=== PATIENT | female | born 1980 | race Two or more races ===

== ENCOUNTER 2016-10-10 12:31 | Emergency (ER) | payer MEDICAID | END 2016-10-10 16:35 | disposition home or self-care (01) | LOC: D.ER 12:31 | DX: T14.8 Other injury of unspecified body region (principal); V89.2XXA Person injured in unspecified motor-vehicle accident, traffic, initial encounter; Y93.89 Activity, other specified; Y92.89 Other specified places as the place of occurrence of the external cause; K21.9 Gastro-esophageal reflux disease without esophagitis; F17.200 Nicotine dependence, unspecified, uncomplicated ==

== ENCOUNTER 2018-02-27 14:52 | Emergency (ER) | payer MEDICAID ==
[~2018-02-27] VITALS: Ht 165.1 cm; Wt 95.5 kg
[2018-02-27 15:29] VITALS: Ht 165.1 cm; Wt 95.5 kg
[2018-02-27 16:01] LABS: BASOPHILS 0.2 % (0-2); EOSINOPHILS 1.9 % (0-7); HEMATOCRIT 43.8 % (36.0-48.0); HEMOGLOBIN 15.1 g/dL (12-16); IMMATURE GRANULOCYTES 0.1 % (0-5); LYMPHOCYTES 14.7 % (15-50); MCH 32.4 pg (26.0-34.0); MCHC 34.5 g/dL (31.0-37.0); MEAN PLATELET VOLUME 9.7 fL (7.4-10.4); MONOCYTES 8.9 % (2-11); NEUTROPHILS 74.2 % (40-80); PLATELET COUNT 257 10x3/uL (130-400); RBC 4.66 10x6/uL (4.00-5.40); RDW 13.2 % (11.5-14.5); WBC 8.7 10x3/uL (4.8-10.8)
[2018-02-27 16:18] LABS: ALBUMIN 3.5 g/dL (3.4-5.0); ANION GAP 12.6 mmol/L (8-16); BILIRUBIN - TOTAL 0.39 mg/dL (0.2-1.3); CALCIUM 8.1 mg/dL (8.5-10.1); CARBON DIOXIDE 25.8 mmol/L (21.0-32.0); CREATININE - SERUM 0.9 mg/dL (0.6-1.3); POTASSIUM - SERUM 3.4 mmol/L (3.5-5.1); PROTEIN - SERUM 6.4 g/dL (6.4-8.2)
[2018-02-27 16:47] LABS: APPEARANCE HAZY (CLEAR); BILIRUBIN NEGATIVE (NEGATIVE); COLOR YELLOW (YELLOW); GLUCOSE NEGATIVE (NEGATIVE); KETONE NEGATIVE (NEGATIVE); NITRITE NEGATIVE (NEGATIVE); PROTEIN TRACE mg/dL (NEGATIVE); UROBILINOGEN NORMAL (NORMAL)
[2018-02-27 16:54] LABS: BACTERIA MODERATE /hpf (NONE SEEN); EPITHELIAL CELLS 0-5 /hpf (0-5); RED CELLS - URINE 0-5 /hpf (0-5)
[2018-02-27] MEDS ORDERED: CIPRO500 MG PO (17:59)
[2018-02-27 18:30] VITALS: BP 124/80
== END 2018-02-27 18:31 | disposition home or self-care (01) ==
LOC: D.ER 14:52
PROVIDERS: Family Medicine
DX: N39.0 Urinary tract infection, site not specified (principal); R30.0 Dysuria

== ENCOUNTER 2018-04-23 22:48 | Emergency (ER) | payer MEDICAID ==
[~2018-04-23] VITALS: Ht 165.1 cm; Wt 95.0 kg
[~2018-04-23 22:48] MED LIST: CIPRO500 MG PO
[2018-04-23 23:00] VITALS: Ht 165.1 cm; Wt 95.0 kg
[2018-04-23 23:21] LABS: HCG URINE NEGATIVE (NEGATIVE)
[2018-04-23 23:31] LABS: APPEARANCE HAZY (CLEAR); BACTERIA MODERATE /hpf (NONE SEEN); BILIRUBIN NEGATIVE (NEGATIVE); COLOR YELLOW (YELLOW); GLUCOSE NEGATIVE (NEGATIVE); KETONE NEGATIVE (NEGATIVE); NITRITE NEGATIVE (NEGATIVE); PROTEIN TRACE mg/dL (NEGATIVE); UROBILINOGEN NORMAL (NORMAL)
[2018-04-23 23:32] LABS: MUCUS >1+ /lpf (NONE SEEN)
[2018-04-23 23:34] LABS: BASOPHILS 0.6 % (0-2); HEMATOCRIT 40.7 % (36.0-48.0); HEMOGLOBIN 13.9 g/dL (12-16); IMMATURE GRANULOCYTES 0.1 % (0-5); LYMPHOCYTES 29.1 % (15-50); MCH 32.3 pg (26.0-34.0); MCHC 34.2 g/dL (31.0-37.0); MCV 94.4 fL (80.0-100.0); MEAN PLATELET VOLUME 9.8 fL (7.4-10.4); MONOCYTES 5.6 % (2-11); NEUTROPHILS 60.6 % (40-80); PLATELET COUNT 291 10x3/uL (130-400); RBC 4.31 10x6/uL (4.00-5.40); RDW 13.2 % (11.5-14.5); WBC 10.8 10x3/uL (4.8-10.8)
[2018-04-23 23:47] LABS: ALBUMIN 3.4 g/dL (3.4-5.0); ANION GAP 12.1 mmol/L (8-16); BILIRUBIN - TOTAL 0.22 mg/dL (0.2-1.3); CALCIUM 8.2 mg/dL (8.5-10.1); CARBON DIOXIDE 26.3 mmol/L (21.0-32.0); CREATININE - SERUM 0.9 mg/dL (0.6-1.3); POTASSIUM - SERUM 3.4 mmol/L (3.5-5.1); PROTEIN - SERUM 6.8 g/dL (6.4-8.2)
[2018-04-24 00:06] VITALS: BP 122/74
== END 2018-04-24 00:07 | disposition home or self-care (01) ==
LOC: D.ER 22:48
PROVIDERS: Family Medicine
DX: N93.9 Abnormal uterine and vaginal bleeding, unspecified (principal); R10.2 Pelvic and perineal pain

== ENCOUNTER 2018-11-15 21:14 | Emergency (ER) | payer MEDICAID ==
[~2018-11-15] VITALS: Ht 165.1 cm; Wt 100.0 kg
[2018-11-15 21:33] VITALS: Ht 165.1 cm; Wt 100.0 kg
[2018-11-15 22:43] LABS: BASOPHILS 0.6 % (0-2); EOSINOPHILS 4.9 % (0-7); HEMATOCRIT 41.4 % (36.0-48.0); HEMOGLOBIN 14.4 g/dL (12-16); IMMATURE GRANULOCYTES 0.2 % (0-5); LYMPHOCYTES 29.5 % (15-50); MCH 31.9 pg (26.0-34.0); MCHC 34.8 g/dL (31.0-37.0); MCV 91.6 fL (80.0-100.0); MEAN PLATELET VOLUME 9.4 fL (7.4-10.4); MONOCYTES 8.3 % (2-11); NEUTROPHILS 56.5 % (40-80); PLATELET COUNT 285 10x3/uL (130-400); RBC 4.52 10x6/uL (4.00-5.40); RDW 12.8 % (11.5-14.5); WBC 9.1 10x3/uL (4.8-10.8)
[2018-11-15 22:52] LABS: APPEARANCE CLEAR (CLEAR); BILIRUBIN NEGATIVE (NEGATIVE); COLOR YELLOW (YELLOW); GLUCOSE NEGATIVE (NEGATIVE); KETONE NEGATIVE (NEGATIVE); NITRITE NEGATIVE (NEGATIVE); PROTEIN NEGATIVE (NEGATIVE); RED CELLS - URINE OCC /hpf (0-5); SPECIFIC GRAVITY 1.015 (1.005-1.020); UROBILINOGEN NORMAL (NORMAL); WHITE CELLS - URINE 0-5 /hpf (0-5)
[2018-11-15 22:53] LABS: BACTERIA MODERATE /hpf (NONE SEEN); EPITHELIAL CELLS 0-5 /hpf (0-5)
[2018-11-15 22:53] LABS: HCG SERUM POSITIVE (NEGATIVE)
[2018-11-15 22:54] LABS: ALBUMIN 3.6 g/dL (3.4-5.0); ALKALINE PHOSPHATASE 58 U/L (46-116); ALT (SGPT) 23 U/L (10-68); BILIRUBIN - TOTAL 0.27 mg/dL (0.2-1.3); CALC OSMOLALITY 276 mosm/kg (275-300); CALCIUM 8.4 mg/dL (8.5-10.1); CHLORIDE - SERUM 102 mmol/L (98-107); CREATININE - SERUM 0.7 mg/dL (0.6-1.3); GLUCOSE 102 mg/dL (74-106); POTASSIUM - SERUM 3.5 mmol/L (3.5-5.1); PROTEIN - SERUM 6.9 g/dL (6.4-8.2); SODIUM 139 mmol/L (136-145); UREA NITROGEN 11 mg/dL (7-18); eGFR NON AFRICAN AMERICAN > 90 mL/min (90-120)
[2018-11-16 00:10] VITALS: BP 101/56
== END 2018-11-16 00:08 | disposition home or self-care (01) ==
LOC: D.ER 21:14
PROVIDERS: Family Medicine
DX: O20.9 Hemorrhage in early pregnancy, unspecified (principal); Z3A.10 10 weeks gestation of pregnancy

== ENCOUNTER 2020-02-08 14:12 | Outpatient (CLI) | payer MEDICAID ==
[2018-11-15 21:33] VITALS: BMI 36.6
[2020-02-08 15:32] LABS: BILIRUBIN NEGATIVE (NEGATIVE); KETONE NEGATIVE (NEGATIVE); NITRITE NEGATIVE (NEGATIVE); UROBILINOGEN NORMAL (NORMAL)
== END 2020-02-08 16:30 | disposition home or self-care (01) ==
LOC: D.LDO 14:12
PROVIDERS: ATTEND Student in an Organized Health Care Education/Training Program
DX: O26.899 Other specified pregnancy related conditions, unspecified trimester (principal); Z3A.00 Weeks of gestation of pregnancy not specified; M54.5 Low back pain; R30.0 Dysuria

== ENCOUNTER 2020-03-08 00:37 | Inpatient (IN) | payer MEDICAID ==
[2020-03-06 16:24] LABS: HEMATOCRIT 36.8 % (36.0-48.0); HEMOGLOBIN 12.3 g/dL (12-16); MCH 30.6 pg (26.0-34.0); MCHC 33.4 g/dL (31.0-37.0); MCV 91.5 fL (80.0-100.0); MEAN PLATELET VOLUME 10.3 fL (7.4-10.4); RBC 4.02 10x6/uL (4.00-5.40); WBC 8.7 10x3/uL (4.8-10.8)
[2020-03-06 16:34] VITALS: BP 106/61; Ht 166.4 cm; Wt 107.0 kg
[2020-03-08] VITALS (7 sets, daily range): BP systolic 88–103; BP diastolic 52–57
[~2020-03-08] VITALS: Ht 166.4 cm; Wt 107.0 kg
--- NOTE | ~2020-03-08 | OP ---
PATIENT NAME: SEFERINO PULLIAM MEDICAL RECORD: [id number] :78 LOCATION:[facility] [id number] ADMISSION DATE:03/08/20 SURGEON: SONG MATTHEWS MD DATE OF OPERATION: 03/08/2020 DATE OF SERVICE: 03/08/2020 PREOPERATIVE DIAGNOSES: 1. at 39 weeks. 2. Previous section. POSTOPERATIVE DIAGNOSES: 1. at 39 weeks. 2. Previous section. PROCEDURE: Repeat low transverse section. SURGEON: Song Matthews MD BEDSPRING ASSEMBLER: [place]. ANESTHESIA: Spinal. FINDINGS: Viable male , weight 7 pounds 14 ounces, Apgars 9 and 9. Uterus and ovaries, and tubes are unremarkable. SPECIMENS REMOVED: Placenta. SPECIMEN DISPOSITION: Discarded. ESTIMATED BLOOD LOSS: 750 cc. FLUIDS: 1800 cc of lactated Ringer's. URINE OUTPUT: 350 cc of clear urine. COMPLICATIONS: None. DRAIN: [id number]. INDICATIONS: The patient is a 39-year-old female status post section. The patient is now 39 weeks and was consented for repeat. Risks, benefits and limitations of the procedure have been described. DESCRIPTION OF PROCEDURE: After informed consent was assured, the patient was taken to the operating room, anesthetic was obtained without difficulty. The patient was now prepped and draped in the usual sterile fashion. An incision was made over the old scar, carried down to the underlying layer of the fascia, which was opened in the midline and extended laterally. The rectus bellies were dissected free superiorly and inferiorly and in the midline. The bladder flap was developed and a low transverse hysterotomy was performed. Infant was delivered onto the abdomen atraumatically. Cord was doubly clamped and cut, and the infant passed to the awaiting attendant. Placenta was now delivered via Crede maneuver. Uterus exteriorized, cleared of all clot and debris. The hysterotomy was closed with a running stitch of chromic. After OPERATIVE REPORT [id number] SEFERINO PULLIAM this had been performed, the uterus was returned to the abdomen. Pelvis was irrigated and irrigant removed. Rectus bellies were loosely approximated in the midline with absorbable stitch and the fascia was closed with PDS. Subcutaneous tissues were irrigated, bleeding vessels cauterized, and the skin was now closed. Sterile dressing was applied. Sponge, lap, and needle counts correct times 2. TRANSINT:[id number] Voice Confirmation ID: [id number] DOCUMENT ID: [id number] SONG MATTHEWS MD CC: [id number] DICTATION DATE: 03/13/20648 SHIRT IRONER SUPERVISOR: 03/13/20 1023 DIS IN 03/10/20 [facility] [address] [id number]
[~2020-03-08 00:37] MED LIST changes: +ACETAMINOPHEN500 M1 PO; +PRENAVITE1 TAB PO; +TUMS X-STR300 MG PO
[2020-03-08 07:15] LABS: RAPID PLASMA REAGIN Non Reactive (Non Reactive)
--- NOTE | 2020-03-08 13:42 | NUR ---
REC'D BACK TO ROOM FOR PACU. AA&O X3. DENIES PAIN. VSS. FUNDUS FIRM, MIDLINE AND U2 WITH MODERATE AMT RUBRA LOCHIA, 3 QUARTER SIZED CLOTS NOTED. PERICARE DONE. TOWELS PADS, AND CHUX CHANGED. BREATH SOUNDS CLEAR AND EQUAL BILATERALLY. S1S2, REG RATE AND RYHTHM NOTED. BOWELS SOUNDS PRESENT AND HYPOACTIVE X4 QUADRANTS. BULKY DRSG TO LOWER TRANSVERSE ABD INCISION CLEAN, DRY AND INTACT, NO DRAINAGE NOTED. 1+ BLE EDEMA NOTED. SCD'S ON BLE. EVANS DRAINING TO BEDSIDE DRAINAGED WITH 200 MLS CONCENTRATED TEA COLORED URINE PRESENT. DENIES PAIN. PLACED IN SEMI-FOWLERS POSITION AND TILTED TO R SIDE. INFANT TO BEDSIDE PER NBN RN. TOWELS CHUX, AND GOWN CHANGED. BED IN LOW POSTION WITH SRUP X2. CALL LIGHT AND PHONE WITHIN REACH. SPOUSE AT BEDSIDE, SUPPORTIVE AND ATTENTIVE.
--- NOTE | 2020-03-08 14:32 | NUR ---
VSS. FUNDUS FIRM, MIDLINE AND U2 WITH MODERATE AMT RUBAR, NO CLOTS NOTED. REPORTS THAT BLE REMAIN "HEAVY FEELING" DENIES PAIN AND NAUSEA, ICE CHIPS PROVIDED. BONDING WITH INFANT IN ARMS. WILL CONTINUE TO MONITOR.
--- NOTE | 2020-03-08 15:13 | NUR ---
VSS. FUNDUS RAMAINS FIRM, MIDLINE AND U2 WITH SMALL AMT RUBRA LOCHIA, NO CLOTS NOTED. DENIES PAIN AND NAUSEA. SPRITE AND ICE WATER PROVIDED. NEW ICE PACK PLACED. DENIES ADDITIONAL NEEDS. REQUESTING TO EAT. DR. MATTHEWS CONTACTED AND ORDERS REC'D.
--- NOTE | 2020-03-08 16:24 | NUR ---
VSS. FUNDUS FIRM, MIDLINE AND U2 WITH SMALL AMT RUBRA LOCHIA, NO CLOTS NOTED. PERICARE DONE, NO CLOTS NOTED. TOWELS AND CHUX CHANGED. SCD'S ON BLE. ICE WATER AND ICE PACK PROVIDED. COUGH AND DEEP BREATHING DONE WITH GOOD EFFORT. DINNER TRAY PROVIDED. BONDING WITH IN ARMS. BED IN LOW POSITION WITH SRUP X2. CALL LIGHT AND PHONE WITHIN REACH. WILL CONTINUE TO MONITOR.
--- NOTE | 2020-03-08 17:43 | NUR ---
ATTEMPTING TO BF . REFUSES V/S AT THIS TIME. WILL NOTIFY RN WHEN FEEDING COMPLETED. WILL CONTINUE TO MONITOR. SPOUSE AT BEDSIDE, SUPPORTIVE AND ATTENTIVE TO PT AND NEEDS. BED IN LOW POSITION WITH SRUP X2. CALL LIGHT AND PHONE WITHIN REACH. WILL CONTINUE TO MONITOR.
--- NOTE | 2020-03-08 18:13 | NUR ---
C/O ABD AND INCISIONAL DISCOMFORT. TORADOL AND 1MG HYDROMORPHONE GIVEN PER PT REQUEST AND ORDER. 400 MLS CONCENTRATED TEA COLORED URINE EMPTIED FROM EVANS. CURRENTLY BF AND REQUESTS V/S BE TAKEN WHEN FEEDING COMPLETED, STATES THAT SHE WILL NOTIFY RN USING CALL LIGHT WHEN FEEDING COMPLETED. DRSG REMAINS CLEAN, DRY, AND INTACT, NO DRAINAGE NOTED. SCD'S ON BLE. WILL CONTINUE TO MONITOR.
--- NOTE | 2020-03-08 19:13 | NUR ---
RN TO PT BEDSIDE AT THIS TIME FOR ROUNDING. PT STATES PAIN IS 3/10 TO ABDOMEN, PT STATES SHE IS TOLERATING THE PAIN WELL, PT HAS 27ML IN UROMETER. GENERALIZED EDEMA TO LOWER EXTREMITIES, INCISION IS INTACT WITH DRESSING, NO DRAINAGE NOTED. BED IN LOWEST POSITON, SIDE RAILS UPX2, CALL LIGHT IN REACH.
--- NOTE | 2020-03-08 21:52 | NUR ---
RN TO PT BEDSIDE, EVANS CATHETER D/C'D AT THIS TIME. PT ASSISTED TO AMBULATORY POSITION, PT TO BATHROOM WITH STANDBY ASSISTANCE, GAIT STEADY, PT TOLERATING AMBULATION, PT VOIDED 250ML IN URINE HAT. PT BEDDING CHANGED, PT PROVIDED WITH NEW GOWN, PADS, AND BRIEFS. PT AMBULATED BACK TO BED. FOB AT BEDSIDE, IN HIS ARMS.
--- NOTE | 2020-03-09 00:50 | NUR ---
PATIENT REPORT RECEIVED FROM AYALA CARNEY TO ASSUME PT CARE.
--- NOTE | 2020-03-09 02:20 | NUR ---
PATIENT COMPLAINING OF THE TAPE OVER HER INCISION, SMALL PIECES CUT OFF FROM THE FOLD OF HER THIGH AND PT STATES THAT IT FEELS BETTER. 300ML URINE EMPTIED FROM [place] HAT. NO FURTHER NEEDS IDENTIFIED. WILL CONTINUE TO MONITOR.
--- NOTE | 2020-03-09 03:25 | NUR ---
MEDICATION ADMINISTERED PER PT REQUEST AND MD ORDERS, SEE EMAR.
--- NOTE | 2020-03-09 04:38 | NUR ---
INFANT TO NURSERY VIA OPEN CRIB PER MOTHERS REQUEST. NO FURTHER NEEDS IDENTIFIED. WILL CONTINUE TO MONITOR.
--- NOTE | 2020-03-09 05:54 | NUR ---
PAIN MEDICATION ADMINISTERED PER MD ORDERS. IV FLUSHED WITH 10ML NS. PT RESTING QUIETLY, DENIES ANY NEEDS. WILL CONTINUE TO MONITOR.
[2020-03-09 07:18] LABS: HEMATOCRIT 32.7 % (36.0-48.0); HEMOGLOBIN 10.7 g/dL (12-16); MCH 30.2 pg (26.0-34.0); MCHC 32.7 g/dL (31.0-37.0); MCV 92.4 fL (80.0-100.0); MEAN PLATELET VOLUME 10.5 fL (7.4-10.4); RBC 3.54 10x6/uL (4.00-5.40); RDW 14.1 % (11.5-14.5); WBC 9.7 10x3/uL (4.8-10.8)
[2020-03-09 07:28] VITALS: BP 112/69
--- NOTE | 2020-03-09 07:28 | NUR ---
AM ASSESSMENT COMPLETED, PT AMBULATORY IN ROOM WITH IN ARMS ON ENTRY TO ROOM. ALERT, ORIENTED, CONVERSANT, VSS, AFEBRILE, RESP EVEN AND UNLABORED, LUNGS CTAB HEART RRR WITH NO AUDIBLE MURMUR, ABD SOFT AND MILDLY DISTENDED, REPORTS PASSING FLATUS, BOWEL SOUNDS ACTIVE AND PRESENT X4 QUADS, FUNDUS FIRM AT U/2 AND MIDLINE, LOCHIA RUBRA SCANT AMOUNT, DENIES CLOTS, SELF PERFORMS PERICARE AND VOIDING WITHOUT DIFFICULTY, NO BM YET, ANDERSON FREELY, NEGATIVE JESSICA'S SIGN B LE, NO PEDAL EDEMA NOTED B. INCISION TO LOW TRANSVERSE ABDOMEN IS COVERED WITH THICK OCCLUSIVE BANDAGE AND NO DRAINAGE IS NOTED TO DRESSING. REVIEWED PLAN OF CARE FOR TODAY, PT VOICES UNDERSTANDING. WILL MONITOR FOR CHANGE IN STATUS.
--- NOTE | 2020-03-09 08:10 | NUR ---
breakfast tray delivered to pt room, pt denies needs/concerns, resp even and unlabored, continue to monitor.
--- NOTE | 2020-03-09 09:45 | NUR ---
rounds completed, infant in pt arms, bonding well with infant, cup of cranberry juice provided, no other needs voiced, call light in easy reach of pt, bed in low position, bed brakes locked, side rails up x2.
--- NOTE | 2020-03-09 10:15 | NUR ---
rounds completed, dr ramirez to pt room on rounds. abd dressing removed, low transverse incision cdi with steristrips noted. no drainage, separation, warmth, or redness noted to site. pt ambulatory in room, will monitor for change in status.
--- NOTE | 2020-03-09 10:41 | NUR ---
pt requests prn pain medication, same provided, will monitor for effect.
--- NOTE | 2020-03-09 11:30 | NUR ---
rounds completed, denies needs/concerns, will monitor.
--- NOTE | 2020-03-09 12:05 | NUR ---
scheduled toradol administered and daily nicotine patch applied to right posterior shoulder per pt request, old patch removed. nad noted, personalitems and linens provided for shower anticipated after lunch today; denies other needs/concerns, nad noted. continue to monitor.
[2020-03-09 12:14] VITALS: BP 115/58
--- NOTE | 2020-03-09 13:10 | NUR ---
ROUNDS COMPLETED, PT REPORTS PAIN "MUCH BETTER NOW" RATING "3 OR 4" OUT OF 10 POINT NUMERIC SCALE. CONTINUE TO MONITOR.
--- NOTE | 2020-03-09 14:26 | NUR ---
ROUNDS COMPLETD, CRANBERRY JUICE PROVIDED PER REQUEST, IN ARMS, BONDING WELL, NAD NOTED. CONTINUE TO MONITOR.
--- NOTE | 2020-03-09 15:16 | NUR ---
pt requesting prn med for pain rated 6 out of 10 on numeric pain scale; same provided. no other needs voiced at this time.
[2020-03-09 16:08] VITALS: BP 108/60
--- NOTE | 2020-03-09 16:08 | NUR ---
vss, afebrile, sitting upright in bed, infant in arms, denies needs/concerns, pain reassessment with pain now 3 out of 10 on numeric pain scale, call light ni easy reach, bed in low position, bed brakes locked. side rails up x2, continue to monitor.
--- NOTE | 2020-03-09 17:28 | NUR ---
rounds completed, denies needs/concerns, nad noted, in pt arms with nad noted, call light in easy reach, bed in low position, bed brakes locked, side rails up x2, continue to monitor.
--- NOTE | 2020-03-09 18:24 | NUR ---
TELEPHONE ORDER PER DR MATTHEWS TO CONVERT TORADOL TO PO ROUTE, ORDER NOTED AND RELAYED TO PT. PT STATES UNDERSTANDING. CONTINUE TO MONITOR.
[2020-03-09 19:10] VITALS: BP 127/56
--- NOTE | 2020-03-09 19:10 | NUR ---
SHIFT ASSESSMENT COMPLETED, SEE FLOWSHEET.
--- NOTE | 2020-03-09 21:00 | NUR ---
PT LYING IN BED WITH EYES CLOSED, DENIES NEEDS AT THIS TIME. WILL CONTINUE TO MONITOR
--- NOTE | 2020-03-09 22:57 | NUR ---
PAIN MEDICATION ADMINISTERED PER PT REQUEST, SEE EMAR
--- NOTE | 2020-03-10 00:46 | NUR ---
PAIN MEDICATION ADMINISTERED, SEE EMAR
--- NOTE | 2020-03-10 01:20 | NUR ---
PT WALKING IN HALLWAY TO GET ICE AND JUICE. DENIES NEEDS, WILL CONTINUE TO MONITOR.
--- NOTE | 2020-03-10 02:35 | NUR ---
PT CHANGING INFANTS DIAPER, DENIES NEEDS. WILL CONTINUE TO MONITOR.
--- NOTE | 2020-03-10 05:11 | NUR ---
INFANT TO ROOM VIA OPEN CRIB PER NURSERY RN. PT DENIES NEEDS AT THIS TIME
--- NOTE | 2020-03-10 05:49 | NUR ---
PAIN MEDICATION ADMINISTERED PER PT REQUEST AND MD ORDERS. SEE EMAR. PT DENIES OTHER NEEDS AT THIS TIME, WILL CONTINUE TO MONITOR.
--- NOTE | 2020-03-10 08:05 | NUR ---
pt sitting on side of bed eating breakfast. vs done- assessment done. dr benson here to see pt. discusses discharge.
[2020-03-10 08:07] VITALS: BP 102/71
--- NOTE | 2020-03-10 08:46 | NUR ---
up and about in room. saline lock removed- pressure held and bandaide applied.
--- NOTE | 2020-03-10 10:10 | NUR ---
requesting pain medication- co pain at incision. rates pain a 5-6 on scale of 0-10.
--- NOTE | 2020-03-10 11:58 | NUR ---
unable to locate pt vaccine info from [place] vaccine [place]. [place] pt states she does not know when she might have had t-dap "if i have had it -it was a long time ago." states she wants t-dap and rubulla vaccine. info sheets given.
--- NOTE | 2020-03-10 12:29 | NUR ---
PT AMBULATES TO DESK. STATES SHE DOES NOT RUBELLA VACCINE AT THIS TIME. STATES THAT THE LAST TIME SHE GOT IT- IT STUNG QUITE A BIT.
--- NOTE | 2020-03-10 12:31 | NUR ---
TOBACCO QUIT REFERRAL FORM GIVEN TO PT TO FILL OUT.
--- NOTE | 2020-03-10 12:43 | NUR ---
[facility] TOBACCO QUITLINE REFERRAL FAXED TO PROVIDED NUMBER.
[2020-03-10] MEDS ORDERED: PERCOCET 7.5/321 TAB PO (12:46)
[2020-03-10] MEDS ORDERED: IBUPROFEN800 MG PO (12:49)
--- NOTE | 2020-03-10 13:07 | NUR ---
DISCHARGE INSTRUCTIONS VERBAL AND WRITTEN GIVEN. SCRIPTS X2 GIVEN ALONG WITH PT MED REC AND DRUG DATA INFO. SEE SIGNED FORM FOR OTHER DISCHARGE INFO GIVEN. PFW POST OP AND POST INST GIVEN. AWHONN GUIDELINES GIVEN. PT DENIES QUESTIONS.
== END 2020-03-10 13:20 | disposition home or self-care (01) | DRG 788 ==
LOC: D.LD 00:37
PROVIDERS: ADMIT Obstetrics & Gynecology; ATTEND Obstetrics & Gynecology
PROC: 10D00Z1 Extraction of Products of Conception, Low, Open Approach (ICD-10-PCS; principal; 2020-03-08 10:00)
DX: O34.219 Maternal care for unspecified type scar from previous cesarean delivery (principal); Z3A.39 39 weeks gestation of pregnancy; Z37.0 Single live birth; O99.334 Smoking (tobacco) complicating childbirth